=== PATIENT | female | born 1945 ===

== ENCOUNTER 2019-01-11 15:51 | Inpatient (IN) | payer MEDICARE, MEDICAID ==
--- NOTE | 2019-01-11 15:30 | NUR ---
RECEIVED ON UNIT WITH FAMILY AND FRIENDS AT HER SIDE. BROUGHT IN VIA HER OWN W/C FROM HOME. IN NO ACUTE DISTRESS. ORIENTED TO ROOM AND SURROUNDING VERBALIZE UNDERSTANDING.
[2019-01-11] MEDS ORDERED: GABA800T11 PO (17:01)
[2019-01-11] MEDS ORDERED: DULO60CA45 PO (17:01)
[2019-01-11] MEDS ORDERED: METO-358 PO (17:01)
[2019-01-11] MEDS ORDERED: FURO40TA5 PO (17:01)
[2019-01-11] MEDS ORDERED: VIT1CAPS27 PO (17:01)
[2019-01-11] MEDS ORDERED: LEVO75TA7 PO (17:01)
[2019-01-11] MEDS ORDERED: PSYL0.4C2 PO (17:01)
[2019-01-11] MEDS ORDERED: DIME240C2 PO (17:01)
[2019-01-11] MEDS ORDERED: CHOL10002 PO (17:01)
[2019-01-11] MEDS ORDERED: MORP20CA19 PO (17:01)
[2019-01-11] MEDS ORDERED: OXYC30TA2 PO (17:01)
[2019-01-11] MEDS ORDERED: POTA10TA15 PO (17:01)
[2019-01-11] MEDS ORDERED: ALEN70TA6 PO (17:01)
[2019-01-11] MEDS ORDERED: OMEP40CA37 PO (17:01)
[2019-01-11] MEDS ORDERED: MULT-1160 PO (17:01)
[2019-01-11] MEDS ORDERED: PRED5DRO16 OP (17:01)
[2019-01-11] MEDS ORDERED: ATOR80TA PO (17:01)
--- NOTE | 2019-01-11 19:00 | NUR ---
125/62, 98% on room air, 72 heart rate, 98.4 oral temperature, 19 respirations, no complaints of pain, no signs distress, MD joseph notified of patients arrival, patient noted transferring to commode
[2019-01-11 19:38] VITALS: BP 125/62
[2019-01-11 20:11] VITALS: BP 132/67
[2019-01-11] MEDS ORDERED: MORPHINE SULFATE IR 30 MG TABLET PO SCH (21:00)
[2019-01-11] MEDS: MORPHINE SULFATE SR 15 MG TABLET.SA PO SCH (21:04)
[2019-01-11] MEDS: OXYCODONE HCL 5 MG TABLET PO PRN (22:35)
[2019-01-11] MEDS: TEMAZEPAM 15 MG CAPSULE PO PRN (23:21)
--- NOTE | 2019-01-11 23:29 | NUR ---
Received pt in bed, AAO x 3, watching television. No acute distress noted. Verbally responsive and able to make needs known. Denies pain or discomfort at this time. All due medications given as ordered, tolerated. All safety measures and fall precautions maintained. Call light and all personal belongings within reach. Will continue to monitor.
[2019-01-12] MEDS: LEVOTHYROXINE SODIUM 75 MCG TABLET PO SCH (06:37)
[2019-01-12] MEDS: PANTOPRAZOLE SODIUM 40 MG TABLET.DR PO SCH (06:37)
[2019-01-12] MEDS: CHOLECALCIFEROL 1,000 UNIT TABLET PO SCH (08:20)
[2019-01-12] MEDS: MORPHINE SULFATE SR 15 MG TABLET.SA PO SCH ×2 (08:21→20:26)
[2019-01-12] MEDS: OXYCODONE HCL 5 MG TABLET PO PRN ×3 (08:21→22:51)
[2019-01-12] MEDS: FUROSEMIDE 40 MG TABLET PO SCH ×2 (08:21→17:24)
[2019-01-12] MEDS: POTASSIUM CHLORIDE 10 MEQ TAB.PRT.SR PO SCH (08:21)
[2019-01-12] MEDS: DULOXETINE 60 MG CAPSULE.DR PO SCH ×2 (08:22→17:23)
[2019-01-12] MEDS: METOPROLOL SUCCINATE XL 50 MG TAB.SR.24H PO SCH (08:22)
[2019-01-12] MEDS: GABAPENTIN 400 MG CAPSULE PO SCH ×3 (08:26→17:23)
[2019-01-12] MEDS: ALENDRONATE SODIUM 70 MG TABLET PO SCH (08:26)
--- NOTE | 2019-01-12 08:30 | NUR ---
Patient noted eating breakfast at this time, took all medications this morning, prn pain medication given for left sided generalized pain, no signs of distress noted, call light placed in reach, all needs met at this time
[2019-01-12 09:00] VITALS: BP 155/83
[2019-01-12] MEDS ORDERED: prednisoLONE ACET 1% OPHT DROP 5 ML BOTTLE OP SCH (09:00)
[2019-01-12] MEDS: NICOTINE 14 MG/24HR PATCH TD SCH (13:26)
--- NOTE | 2019-01-12 15:30 | NUR ---
Patient discharged at this time to home with formerly [facility] via ambulance service and [facility], discharge instructions given to family and patient, exit care provided, no skin issues, no complaints of pain, no signs of distress noted, VITALS: 112/41, 96% on room air, 18 respirations, 85 pulse, 97.8 oral temperature, belongings accounted for sent home with patient, all paperwork signed and placed in chart Addendum: 01/15/19 at 1539 by MAURISIO LEMUS RN RN ERROR, wrong patient
[2019-01-12 16:26] VITALS: BP 135/80
[2019-01-12] MEDS: prednisoLONE ACET 1% OPHT DROP 5 ML BOTTLE EACHEYE SCH (17:26)
--- NOTE | 2019-01-12 18:35 | NUR ---
Patient made statements to social media marketer about "wishing she would soon", denies suicide plan. MD Sherman notified with orders for Psyche evaluation. Order placed at this time
--- NOTE | 2019-01-12 19:35 | NUR ---
Patient alert and oriented x 3-4. Received in bed watching TV. C/O pain upon assessment, but does not watch medication at this time. Psych consult ordered, but not seen yet. Patient assisted to wheelchair so she can explore the unit. No SOB or distress notes. Will continue to monitor.
[2019-01-12] MEDS: ATORVASTATIN 40 MG TABLET PO SCH ×2 (20:25→20:29)
[2019-01-12 20:37] VITALS: BP 115/60
[2019-01-13] MEDS: TEMAZEPAM 15 MG CAPSULE PO PRN (01:25)
--- NOTE | 2019-01-13 06:15 | NUR ---
Morning BP noted to be 172/86. body recall instructor MD Woodruff contacted for orders. MD order Hydralazine 25mg once, with day shift MD to follow up to ajsust medications. Will continue to monitor.
[2019-01-13 06:28] VITALS: BP 172/86
[2019-01-13] MEDS ORDERED: hydrALAZINE HCL 25 MG TABLET PO ONE (06:30)
[2019-01-13] MEDS: LEVOTHYROXINE SODIUM 75 MCG TABLET PO SCH (06:33)
[2019-01-13] MEDS: PANTOPRAZOLE SODIUM 40 MG TABLET.DR PO SCH (06:33)
--- NOTE | 2019-01-13 06:50 | NUR ---
Patient slept poor this shift foreman. PRN Restoril given, without much effective. PRN pain medication given x1. All due medication given-tolerated well. Hydralazine PRN given-will monitor for BP decrease. given snacks as requested during the night. Patient would frequently wheel herself up to the nurses station and talk with nurses for distraction from inability to sleep. Side rails up bilaterally for safety. Call light and frequently used items within reach. Will endorse to oncoming shift accordingly.
[2019-01-13 08:08] VITALS: BP 166/75
[2019-01-13] MEDS: NICOTINE 14 MG/24HR PATCH TD SCH (08:34)
[2019-01-13] MEDS: GABAPENTIN 400 MG CAPSULE PO SCH ×3 (08:35→16:56)
[2019-01-13] MEDS: MORPHINE SULFATE SR 15 MG TABLET.SA PO SCH ×2 (08:35→20:52)
[2019-01-13] MEDS: DULOXETINE 60 MG CAPSULE.DR PO SCH ×2 (08:35→16:56)
[2019-01-13] MEDS: CHOLECALCIFEROL 1,000 UNIT TABLET PO SCH (08:35)
[2019-01-13] MEDS: prednisoLONE ACET 1% OPHT DROP 5 ML BOTTLE EACHEYE SCH ×2 (08:36→16:56)
[2019-01-13] MEDS: FUROSEMIDE 40 MG TABLET PO SCH ×2 (08:36→16:56)
[2019-01-13] MEDS: METOPROLOL SUCCINATE XL 50 MG TAB.SR.24H PO SCH (08:36)
[2019-01-13] MEDS: POTASSIUM CHLORIDE 10 MEQ TAB.PRT.SR PO SCH (08:36)
--- NOTE | 2019-01-13 14:07 | NUR ---
Received patient awake in bed in stable condition. For psychiatrist consult regarding verbalization, she wants to the sooner the better. MD Gaffney notified thru voice message. will continue monitor
[2019-01-13] MEDS: OXYCODONE HCL 5 MG TABLET PO PRN (15:34)
[2019-01-13 17:05] VITALS: BP 146/75
--- NOTE | 2019-01-13 18:28 | NUR ---
Patient awaiting for psych consult.no behavioral problem noted. will continue monitor
[2019-01-13 20:30] VITALS: BP 157/79
[2019-01-14] MEDS: OXYCODONE HCL 5 MG TABLET PO PRN (00:37)
[2019-01-14] MEDS: TEMAZEPAM 15 MG CAPSULE PO PRN (01:16)
[2019-01-14 05:30] VITALS: BP 159/80
--- NOTE | 2019-01-14 06:02 | NUR ---
aaox4 OOB in wheelchair most of the shift needs attended. complained of pain in the neck radiating to lower back. MS contin(scheduled) given. Tolerated well. Voiding well. Requested for sleeping pill given as needed plus the Oxy 15 mg given for pain. VSS. Will monitor patient. Patient due for psych consult, awaiting for the psych doctor to see her.
[2019-01-14] MEDS: PANTOPRAZOLE SODIUM 40 MG TABLET.DR PO SCH (06:29)
[2019-01-14] MEDS: LEVOTHYROXINE SODIUM 75 MCG TABLET PO SCH (06:31)
[2019-01-14 07:27] LABS: BASOPHILS % (AUTO) 0.5 % (0.0-2.0); EOSINOPHILS # (AUTO) 0.1 K/uL (0.0-0.7); HEMATOCRIT 31.7 % (31.2-41.9); HEMOGLOBIN 10.3 g/dL (10.9-14.3); LYMPHOCYTES # (AUTO) 0.4 K/uL (20.0-40.0); MEAN CORPUSCULAR HEMOGLOBIN 27.4 uug (24.7-32.8); MEAN CORPUSCULAR HGB CONC 32 g/dL (32.3-35.6); MEAN CORPUSCULAR VOLUME 84.4 fL (75.5-95.3); MONOCYTES # (AUTO) 0.5 K/uL (2.0-10.0); NEUTROPHILS # (AUTO) 3.8 K/uL (1.8-8.9); NEUTROPHILS % (AUTO) 77.5 % (38.5-71.5); PLATELET COUNT (AUTO) 382 K/uL (179-408); RED BLOOD CELL COUNT(AUTO) 3.75 MIL/uL (3.63-4.92); WHITE BLOOD COUNT (AUTO) 4.9 K/uL (3.8-11.8)
[2019-01-14 07:40] LABS: IRON, SERUM 25 ug/dL (50-175)
--- NOTE | 2019-01-14 08:00 | NUR ---
Patient awake, alert, in bed, not in any form of distress. She denies any pain or discomfort at this time. Assisted her to the toilet via wheelchair. Call light and frequently used items placed within reach.
[2019-01-14 08:38] LABS: ALANINE AMINOTRANSFERASE 19 U/L (14-59); ALKALINE PHOSPHATASE 99 U/L (50-136); ASPARTATE AMINOTRANSFERASE 27 U/L (15-37); BILIRUBIN,TOTAL 0.2 mg/dL (0.2-1.0); CARBON DIOXIDE 29 mmol/L (21-32); CHLORIDE 104 mmol/L (98-107); CHOLESTEROL 141 mg/dL (<200); CREATININE 0.9 mg/dL (0.6-1.3); GLUCOSE 89 mg/dL (74-106); HDL CHOLESTEROL 38 mg/dL (40-60); MAGNESIUM 1.9 mg/dL (1.8-2.4); PHOSPHOROUS 3.4 mg/dL (2.5-4.9); TOTAL PROTEIN, SERUM 6.8 g/dL (6.4-8.2); TRIGLYCERIDES 205 MG/DL (30-150); UREA NITROGEN, BLOOD 19 mg/dL (7-18)
[2019-01-14 09:33] LABS: THYROID STIMULATING HORMONE 2.257 mIU/mL (0.358-3.740)
[2019-01-14] MEDS: FUROSEMIDE 40 MG TABLET PO SCH ×2 (09:49→17:00)
[2019-01-14] MEDS: POTASSIUM CHLORIDE 10 MEQ TAB.PRT.SR PO SCH (09:49)
[2019-01-14] MEDS: GABAPENTIN 400 MG CAPSULE PO SCH ×3 (09:50→17:15)
[2019-01-14] MEDS: DULOXETINE 60 MG CAPSULE.DR PO SCH ×2 (09:50→17:14)
[2019-01-14] MEDS: CHOLECALCIFEROL 1,000 UNIT TABLET PO SCH (09:50)
[2019-01-14] MEDS: NICOTINE 14 MG/24HR PATCH TD SCH (09:51)
[2019-01-14] MEDS: MORPHINE SULFATE SR 15 MG TABLET.SA PO SCH ×2 (09:53→20:22)
[2019-01-14] MEDS: METOPROLOL SUCCINATE XL 50 MG TAB.SR.24H PO SCH (09:53)
[2019-01-14] MEDS: prednisoLONE ACET 1% OPHT DROP 5 ML BOTTLE EACHEYE SCH ×2 (09:54→17:14)
[2019-01-14] MEDS: FERROUS SULFATE 325 MG TABEC PO SCH (10:02)
[2019-01-14] MEDS: AMLODIPINE 5 MG TABLET PO SCH (10:02)
[2019-01-14 10:09] VITALS: BP 144/68
--- NOTE | 2019-01-14 15:57 | NUR ---
INDIVIDUALIZE PLAN OF CARE
[2019-01-14 16:44] VITALS: BP 99/54
[2019-01-14 19:40] VITALS: BP 148/72
--- NOTE | 2019-01-14 19:45 | NUR ---
Patient received sitting in the wheelchair, AAO x4. Able to make needs known. No acute distress or SOB noted. On room air. Complained of severe pain on her neck, rated 9/10. Physical assessment done. Safety measures observed. Fall precaution maintained. Bed in low position, side rails up x2 for safety, brake and alarm on. call light and personal belongings within reach. Continue to monitor.
[2019-01-14] MEDS: ATORVASTATIN 40 MG TABLET PO SCH (20:22)
[2019-01-15] MEDS: OXYCODONE HCL 5 MG TABLET PO PRN ×2 (00:12→10:57)
[2019-01-15] MEDS: TEMAZEPAM 15 MG CAPSULE PO PRN ×2 (01:40→21:58)
[2019-01-15] MEDS: PANTOPRAZOLE SODIUM 40 MG TABLET.DR PO SCH (06:42)
[2019-01-15] MEDS: LEVOTHYROXINE SODIUM 75 MCG TABLET PO SCH (06:42)
--- NOTE | 2019-01-15 07:15 | NUR ---
Patient developed a high BP:165/85, HR:81. No PRN medication for BP. Contacted on-call doctor for the order, Waiting for the response. Will monitor the patient and will endorse to the day shift nurse accordingly.
[2019-01-15 07:42] VITALS: BP 165/85
[2019-01-15] MEDS: DULOXETINE 60 MG CAPSULE.DR PO SCH ×2 (08:34→17:24)
[2019-01-15] MEDS: GABAPENTIN 400 MG CAPSULE PO SCH ×3 (08:34→17:24)
[2019-01-15] MEDS: METOPROLOL SUCCINATE XL 50 MG TAB.SR.24H PO SCH (08:36)
[2019-01-15] MEDS: AMLODIPINE 5 MG TABLET PO SCH (08:36)
[2019-01-15] MEDS: FERROUS SULFATE 325 MG TABEC PO SCH (08:36)
[2019-01-15] MEDS: MORPHINE SULFATE SR 15 MG TABLET.SA PO SCH ×2 (08:36→20:02)
[2019-01-15] MEDS: FUROSEMIDE 40 MG TABLET PO SCH ×2 (08:36→17:00)
[2019-01-15] MEDS: CHOLECALCIFEROL 1,000 UNIT TABLET PO SCH (08:36)
[2019-01-15] MEDS: POTASSIUM CHLORIDE 10 MEQ TAB.PRT.SR PO SCH (08:36)
[2019-01-15] MEDS: prednisoLONE ACET 1% OPHT DROP 5 ML BOTTLE EACHEYE SCH ×2 (08:37→17:25)
[2019-01-15] MEDS: NICOTINE 14 MG/24HR PATCH TD SCH (08:37)
[2019-01-15 09:30] VITALS: BP 129/78
--- NOTE | 2019-01-15 15:06 | NUR ---
Received patient awake in bed in stable condition. Continue therapy for ambulation, ADL, and unsteady gait. no behavioral issue noted. Continue pain management if needed. will continue monitor
--- NOTE | 2019-01-15 16:45 | NUR ---
As per therapy, Patient verbalize that she dont want to live in her brothers place and [facility]. PT said, will see the patient tomorrow, Patient verbalize"If Im still here". MD Rocha (Psych police communications operator) notified and agree to consult tomorrow. Patient consumed 90-100% of her meal. will continue monitor
[2019-01-15] MEDS: TECFIDERA 240 MG PO SCH (17:25)
[2019-01-15 18:40] VITALS: BP 117/60
[2019-01-15 19:49] VITALS: BP 147/79
--- NOTE | 2019-01-15 19:52 | NUR ---
Patient received in bed, AAO x4. Able to make needs known. No acute distress or SOB noted. On room air. Complained of severe pain on her neck, rated 8/10. Physical assessment done. Safety measures observed. Fall precaution maintained. Bed in low position, side rails up x2 for safety, brake and alarm on. call light and personal belongings within reach. Continue to monitor.
[2019-01-15] MEDS: ATORVASTATIN 40 MG TABLET PO SCH (20:02)
[2019-01-16] MEDS: OXYCODONE HCL 5 MG TABLET PO PRN ×3 (01:16→21:49)
[2019-01-16] MEDS: LEVOTHYROXINE SODIUM 75 MCG TABLET PO SCH (06:30)
[2019-01-16] MEDS: PANTOPRAZOLE SODIUM 40 MG TABLET.DR PO SCH (06:31)
[2019-01-16 06:38] VITALS: BP 146/62
--- NOTE | 2019-01-16 06:54 | NUR ---
End of the shift note Patient was stable throughout the shift and has a good sleep last night. No acute distress or SOB noted. On room air. Complained of pain in her neck rated 8/10 in numeric scale. Pain assessed and reassessed after pain medication. Checked Vital Signs. Offloaded heels by pillow. Assisted her to the bathroom by stand by supervision as needed. All due medications given and tolerated well. Safety measures observed. Fall precaution maintained. Bed in low position, side rails up x2 for safety, brake and alarm on. call light and personal belongings within reach. Continue to monitor.
--- NOTE | 2019-01-16 07:38 | NUR ---
Received patient awake, alert, sitting on the wheelchair, not in any form of distress. She denies any pain or discomfort at this time. Needs attended to. Call light and frequently used items within reach.
[2019-01-16 08:37] VITALS: BP 143/74
[2019-01-16] MEDS: POTASSIUM CHLORIDE 10 MEQ TAB.PRT.SR PO SCH (08:37)
[2019-01-16] MEDS: AMLODIPINE 5 MG TABLET PO SCH (08:37)
[2019-01-16] MEDS: CHOLECALCIFEROL 1,000 UNIT TABLET PO SCH (08:37)
[2019-01-16] MEDS: FUROSEMIDE 40 MG TABLET PO SCH ×2 (08:37→17:00)
[2019-01-16] MEDS: FERROUS SULFATE 325 MG TABEC PO SCH (08:38)
[2019-01-16] MEDS: GABAPENTIN 400 MG CAPSULE PO SCH ×3 (08:38→17:18)
[2019-01-16] MEDS: METOPROLOL SUCCINATE XL 50 MG TAB.SR.24H PO SCH (08:38)
[2019-01-16] MEDS: DULOXETINE 60 MG CAPSULE.DR PO SCH ×2 (08:39→17:18)
[2019-01-16] MEDS: prednisoLONE ACET 1% OPHT DROP 5 ML BOTTLE EACHEYE SCH ×2 (08:39→17:17)
[2019-01-16] MEDS: TECFIDERA 240 MG PO SCH ×2 (08:39→17:18)
[2019-01-16] MEDS: NICOTINE 14 MG/24HR PATCH TD SCH (08:40)
[2019-01-16] MEDS: MORPHINE SULFATE SR 15 MG TABLET.SA PO SCH (08:48)
--- NOTE | 2019-01-16 11:52 | NUR ---
INTERDISCIPLINARY TEAM CONFERENCE
--- NOTE | 2019-01-16 15:00 | NUR ---
Patient seen by Dr. Rocha, with new order.
--- NOTE | 2019-01-16 19:30 | NUR ---
Patient received in wheelchair watching TV. Alert and oriented x 3-4. No C/O pain upon assessment. Stool collected as ordered. No SOB or distress notes. Call light and frequently used items within reach. Will continue to monitor.
[2019-01-16 19:35] VITALS: BP 119/75
[2019-01-16] MEDS: ATORVASTATIN 40 MG TABLET PO SCH (20:59)
[2019-01-16 21:29] LABS: *OCCULT BLOOD STOOL POSITIVE (NEGATIVE)
--- NOTE | 2019-01-16 22:10 | NUR ---
Spoke with MD network contractor Jv regarding positive occult stool results. MD to put in orders for CBC for tomorrow morning. Will continue to monitor.
[2019-01-17] MEDS: TEMAZEPAM 15 MG CAPSULE PO PRN (01:17)
[2019-01-17 05:44] VITALS: BP 155/89
[2019-01-17 06:29] LABS: BASOPHILS % (AUTO) 0.5 % (0.0-2.0); EOSINOPHILS # (AUTO) 0.2 K/uL (0.0-0.7); EOSINOPHILS % (AUTO) 4.1 % (0.0-7.0); HEMATOCRIT 30.3 % (31.2-41.9); HEMOGLOBIN 9.9 g/dL (10.9-14.3); LYMPHOCYTES # (AUTO) 0.7 K/uL (20.0-40.0); LYMPHOCYTES % (AUTO) 15.6 % (20.5-51.5); MEAN CORPUSCULAR HEMOGLOBIN 27.6 uug (24.7-32.8); MEAN CORPUSCULAR HGB CONC 33 g/dL (32.3-35.6); MONOCYTES # (AUTO) 0.7 K/uL (2.0-10.0); MONOCYTES % (AUTO) 14.5 % (0.0-11.0); NEUTROPHILS # (AUTO) 2.9 K/uL (1.8-8.9); NEUTROPHILS % (AUTO) 65.3 % (38.5-71.5); PLATELET COUNT (AUTO) 321 K/uL (179-408); RED BLOOD CELL COUNT(AUTO) 3.61 MIL/uL (3.63-4.92); WHITE BLOOD COUNT (AUTO) 4.5 K/uL (3.8-11.8)
[2019-01-17] MEDS: PANTOPRAZOLE SODIUM 40 MG TABLET.DR PO SCH (06:34)
[2019-01-17] MEDS: LEVOTHYROXINE SODIUM 75 MCG TABLET PO SCH (06:34)
[2019-01-17 08:00] LABS: BASOPHILS % (MANUAL) 0 % (0-2); EOSINOPHILS % (MANUAL) 0 % (0-8); LYMPHOCYTES % (MANUAL) 17 % (20-40); MONOCYTES % (MANUAL) 5 % (2-10); NEUTROPHILS % (MANUAL) 68 % (42-75)
[2019-01-17] MEDS: OXYCODONE HCL 5 MG TABLET PO PRN ×2 (08:44→20:00)
[2019-01-17] MEDS: CHOLECALCIFEROL 1,000 UNIT TABLET PO SCH (08:44)
[2019-01-17] MEDS: METOPROLOL SUCCINATE XL 50 MG TAB.SR.24H PO SCH (08:45)
[2019-01-17] MEDS: AMLODIPINE 5 MG TABLET PO SCH (08:45)
[2019-01-17] MEDS: FERROUS SULFATE 325 MG TABEC PO SCH (08:45)
[2019-01-17] MEDS: POTASSIUM CHLORIDE 10 MEQ TAB.PRT.SR PO SCH (08:46)
[2019-01-17] MEDS: buPROPion SR 100 MG TABLET.SA PO SCH (08:46)
[2019-01-17] MEDS: NICOTINE 14 MG/24HR PATCH TD SCH (08:47)
[2019-01-17] MEDS: DULOXETINE 60 MG CAPSULE.DR PO SCH ×2 (08:47→18:42)
[2019-01-17] MEDS: GABAPENTIN 400 MG CAPSULE PO SCH ×3 (08:47→18:40)
[2019-01-17] MEDS: TECFIDERA 240 MG PO SCH ×2 (08:48→18:41)
[2019-01-17] MEDS: prednisoLONE ACET 1% OPHT DROP 5 ML BOTTLE EACHEYE SCH ×2 (08:48→18:43)
[2019-01-17] MEDS: FUROSEMIDE 40 MG TABLET PO SCH ×2 (08:50→13:58)
--- NOTE | 2019-01-17 15:45 | NUR ---
1700 lasix given early per pt request. she says she wants it earlier so she won't be up urinating too late.
--- NOTE | 2019-01-17 19:45 | NUR ---
Patient received in bed, AAO x4. Able to make needs known. No acute distress or SOB noted. On room air. Complained of severe pain on her neck, rated 9/10. Physical assessment done. Safety measures observed. Fall precaution maintained. Bed in low position, side rails up x2 for safety, brake and alarm on. call light and personal belongings within reach. Continue to monitor.
[2019-01-17] MEDS: ATORVASTATIN 40 MG TABLET PO SCH (20:00)
[2019-01-17 21:07] VITALS: BP 113/55
[2019-01-18] MEDS: TEMAZEPAM 15 MG CAPSULE PO PRN (00:28)
[2019-01-18] MEDS: MORPHINE SULFATE SR 15 MG TABLET.SA PO PRN (01:18)
--- NOTE | 2019-01-18 05:52 | NUR ---
End of the shift note Patient was stable throughout the shift and has a 6 hours sleep last night with the help of Restoril 15 mg cap. No acute distress or SOB noted. On room air. Complained of pain in her neck rated 9/10 in numeric scale. Pain assessed and reassessed after pain medication. Checked Vital Signs. Offloaded heels by pillow. Assisted her to the bathroom by stand by supervision as needed. All due medications given and tolerated well. Safety measures observed. Fall precaution maintained. Bed in low position, side rails up x2 for safety, brake and alarm on. call light and personal belongings within reach. Continue to monitor.
[2019-01-18] MEDS: PANTOPRAZOLE SODIUM 40 MG TABLET.DR PO SCH (06:43)
[2019-01-18] MEDS: LEVOTHYROXINE SODIUM 75 MCG TABLET PO SCH (06:43)
[2019-01-18] MEDS: OXYCODONE HCL 5 MG TABLET PO PRN ×3 (06:52→22:17)
[2019-01-18 07:07] VITALS: BP 154/77
[2019-01-18] MEDS: CHOLECALCIFEROL 1,000 UNIT TABLET PO SCH (08:41)
[2019-01-18] MEDS: AMLODIPINE 5 MG TABLET PO SCH (08:41)
[2019-01-18] MEDS: FUROSEMIDE 40 MG TABLET PO SCH ×2 (08:42→14:10)
[2019-01-18] MEDS: METOPROLOL SUCCINATE XL 50 MG TAB.SR.24H PO SCH (08:42)
[2019-01-18] MEDS: FERROUS SULFATE 325 MG TABEC PO SCH (08:42)
[2019-01-18] MEDS: NICOTINE 21 MG/24HR PATCH TD SCH (08:42)
[2019-01-18] MEDS: POTASSIUM CHLORIDE 10 MEQ TAB.PRT.SR PO SCH (08:42)
[2019-01-18] MEDS: DULOXETINE 60 MG CAPSULE.DR PO SCH ×2 (08:43→17:25)
[2019-01-18] MEDS: GABAPENTIN 400 MG CAPSULE PO SCH ×3 (08:43→17:25)
[2019-01-18] MEDS: TECFIDERA 240 MG PO SCH ×2 (08:43→17:26)
[2019-01-18] MEDS: prednisoLONE ACET 1% OPHT DROP 5 ML BOTTLE EACHEYE SCH ×2 (08:43→17:25)
[2019-01-18] MEDS: buPROPion SR 100 MG TABLET.SA PO SCH (08:44)
[2019-01-18] MEDS ORDERED: NICOTINE 14 MG/24HR PATCH TD SCH (09:00)
--- NOTE | 2019-01-18 18:13 | NUR ---
WELLBUTRIN D/C BY D/T HER C/O DIZZINESS AND SHE THINKS IT IS BECAUSE OF THE WELLBUTRIN. IN BED RESTING NO C/O DISTRESS
--- NOTE | 2019-01-18 19:34 | NUR ---
Patient received in bed, AAO x4. Able to make needs known. No acute distress or SOB noted. On room air. No Complain of pain at this time. Physical assessment done. Safety measures observed. Fall precaution maintained. Bed in low position, side rails up x2 for safety, brake and alarm on. call light and personal belongings within reach. Continue to monitor.
[2019-01-18 19:40] VITALS: BP 98/60
[2019-01-18] MEDS: ATORVASTATIN 40 MG TABLET PO SCH (20:20)
[2019-01-19] MEDS: TEMAZEPAM 15 MG CAPSULE PO PRN (01:07)
--- NOTE | 2019-01-19 05:14 | NUR ---
End of the shift note Patient was stable throughout the shift and has 6.5 hours sleep last night with the help of Restoril 15 mg cap. No acute distress or SOB noted. On room air. Complained of pain in her neck rated 9/10 in numeric scale. Pain assessed and reassessed after pain medication. Checked Vital Signs. Offloaded heels by pillow. Assisted her to the bathroom by stand by supervision as needed. All due medications given and tolerated well. Safety measures observed. Fall precaution maintained. Bed in low position, side rails up x2 for safety, brake and alarm on. call light and personal belongings within reach. Continue to monitor and will endorse to oncoming nurse accordingly.
[2019-01-19 05:50] VITALS: BP 156/80
[2019-01-19] MEDS: LEVOTHYROXINE SODIUM 75 MCG TABLET PO SCH (06:33)
[2019-01-19] MEDS: PANTOPRAZOLE SODIUM 40 MG TABLET.DR PO SCH (06:33)
[2019-01-19 08:20] VITALS: BP 150/71
[2019-01-19] MEDS: FUROSEMIDE 40 MG TABLET PO SCH ×2 (08:20→13:13)
[2019-01-19] MEDS: FERROUS SULFATE 325 MG TABEC PO SCH (08:20)
[2019-01-19] MEDS: POTASSIUM CHLORIDE 10 MEQ TAB.PRT.SR PO SCH (08:20)
[2019-01-19] MEDS: AMLODIPINE 5 MG TABLET PO SCH (08:20)
[2019-01-19] MEDS: METOPROLOL SUCCINATE XL 50 MG TAB.SR.24H PO SCH (08:21)
[2019-01-19] MEDS: TECFIDERA 240 MG PO SCH ×2 (08:21→16:41)
[2019-01-19] MEDS: CHOLECALCIFEROL 1,000 UNIT TABLET PO SCH (08:21)
[2019-01-19] MEDS: NICOTINE 21 MG/24HR PATCH TD SCH (08:22)
[2019-01-19] MEDS: ALENDRONATE SODIUM 70 MG TABLET PO SCH (08:22)
[2019-01-19] MEDS: prednisoLONE ACET 1% OPHT DROP 5 ML BOTTLE EACHEYE SCH ×2 (08:22→16:41)
[2019-01-19] MEDS: GABAPENTIN 400 MG CAPSULE PO SCH ×3 (08:23→16:40)
[2019-01-19] MEDS: DULOXETINE 60 MG CAPSULE.DR PO SCH ×2 (08:24→16:40)
--- NOTE | 2019-01-19 08:30 | NUR ---
Patient awake, alert, not in any form of distress. Due medications administered and tolerated well. She denies any pain or discomfort at this time. Call light placed within reach.
[2019-01-19] MEDS: MORPHINE SULFATE SR 15 MG TABLET.SA PO PRN (10:11)
[2019-01-19] MEDS: OXYCODONE HCL 5 MG TABLET PO PRN ×2 (12:07→21:38)
--- NOTE | 2019-01-19 12:30 | NUR ---
Patient seen by Dr. Sanchez with no new order at this time.
[2019-01-19 16:13] VITALS: BP 149/69
--- NOTE | 2019-01-19 18:20 | NUR ---
Patient seen and examined by Dr. Sherman and patient complained of palpitations. BP 106/61, P 74, RR 18, O2 sat 96%. Dr. Sherman ordered EKG.
[2019-01-19 19:50] VITALS: BP 103/62
[2019-01-19] MEDS: ATORVASTATIN 40 MG TABLET PO SCH (20:39)
--- NOTE | 2019-01-19 20:50 | NUR ---
Received pt in bed, AAO x 3, resting comfortably. No acute distress noted. Verbally responsive and able to make needs known. Denies pain or discomfort at this time. All safety measures and fall precautions maintained. Call light and all personal belongings within reach. Will continue to monitor.
[2019-01-20] MEDS: TEMAZEPAM 15 MG CAPSULE PO PRN (01:07)
[2019-01-20 05:22] VITALS: BP 132/72
[2019-01-20] MEDS: OXYCODONE HCL 5 MG TABLET PO PRN ×3 (06:23→20:13)
[2019-01-20] MEDS: PANTOPRAZOLE SODIUM 40 MG TABLET.DR PO SCH (06:24)
[2019-01-20] MEDS: LEVOTHYROXINE SODIUM 75 MCG TABLET PO SCH (06:30)
--- NOTE | 2019-01-20 08:20 | NUR ---
Patient noted sitting in wheelchair in room, no complaints of pain at this time, no signs of distress noted, call light in reach, bedside table in reach with breakfast, all needs met
[2019-01-20] MEDS: POTASSIUM CHLORIDE 10 MEQ TAB.PRT.SR PO SCH (08:35)
[2019-01-20] MEDS: CHOLECALCIFEROL 1,000 UNIT TABLET PO SCH (08:35)
[2019-01-20] MEDS: FUROSEMIDE 40 MG TABLET PO SCH ×2 (08:35→14:00)
[2019-01-20] MEDS: FERROUS SULFATE 325 MG TABEC PO SCH (08:35)
[2019-01-20] MEDS: NICOTINE 21 MG/24HR PATCH TD SCH (08:36)
[2019-01-20] MEDS: METOPROLOL SUCCINATE XL 50 MG TAB.SR.24H PO SCH (08:36)
[2019-01-20] MEDS: AMLODIPINE 5 MG TABLET PO SCH (08:36)
[2019-01-20] MEDS: TECFIDERA 240 MG PO SCH ×2 (08:37→16:35)
[2019-01-20] MEDS: GABAPENTIN 400 MG CAPSULE PO SCH ×3 (08:37→16:34)
[2019-01-20] MEDS: prednisoLONE ACET 1% OPHT DROP 5 ML BOTTLE EACHEYE SCH ×2 (08:38→16:34)
[2019-01-20] MEDS: DULOXETINE 60 MG CAPSULE.DR PO SCH ×2 (08:38→16:34)
[2019-01-20 09:00] VITALS: BP 142/73
[2019-01-20] MEDS: FAMOTIDINE 20 MG TABLET PO SCH (10:27)
[2019-01-20 18:12] VITALS: BP 139/75
[2019-01-20 19:32] VITALS: BP 131/74
--- NOTE | 2019-01-20 19:45 | NUR ---
Patient received bed dozing. patient states that she is very tired from previous night when she did not sleep. Alert and oriented x 3-4. C/O pain upon assessment. Will medicate. SOB or distress notes. Side rails up bilaterally for safety. Call light and frequently used items within reach. Will continue to monitor.
[2019-01-20] MEDS: ATORVASTATIN 40 MG TABLET PO SCH (20:11)
[2019-01-21 06:04] VITALS: BP 158/89
[2019-01-21] MEDS: LEVOTHYROXINE SODIUM 75 MCG TABLET PO SCH (06:36)
[2019-01-21] MEDS: PANTOPRAZOLE SODIUM 40 MG TABLET.DR PO SCH (06:36)
[2019-01-21] MEDS: FAMOTIDINE 20 MG TABLET PO SCH (08:08)
[2019-01-21] MEDS: CHOLECALCIFEROL 1,000 UNIT TABLET PO SCH (08:08)
[2019-01-21] MEDS: TECFIDERA 240 MG PO SCH ×2 (08:09→17:05)
[2019-01-21] MEDS: POTASSIUM CHLORIDE 10 MEQ TAB.PRT.SR PO SCH (08:09)
[2019-01-21] MEDS: GABAPENTIN 400 MG CAPSULE PO SCH ×3 (08:09→17:04)
[2019-01-21] MEDS: FERROUS SULFATE 325 MG TABEC PO SCH (08:09)
[2019-01-21] MEDS: FUROSEMIDE 40 MG TABLET PO SCH ×2 (08:09→13:15)
[2019-01-21] MEDS: NICOTINE 21 MG/24HR PATCH TD SCH (08:10)
[2019-01-21] MEDS: prednisoLONE ACET 1% OPHT DROP 5 ML BOTTLE EACHEYE SCH ×2 (08:10→17:04)
[2019-01-21] MEDS: DULOXETINE 60 MG CAPSULE.DR PO SCH ×2 (08:10→17:04)
--- NOTE | 2019-01-21 08:10 | NUR ---
Patient awake, alert, sitting on the wheelchair, not in any form of distress. Morning due medications administered and tolerated well. No complain of any pain or discomfort at this time. Assisted with her needs. Call light and frequently used items placed within reach.
[2019-01-21] MEDS: METOPROLOL SUCCINATE XL 50 MG TAB.SR.24H PO SCH (08:26)
[2019-01-21] MEDS: AMLODIPINE 5 MG TABLET PO SCH (08:27)
[2019-01-21] MEDS: OXYCODONE HCL 5 MG TABLET PO PRN ×2 (08:51→13:20)
--- NOTE | 2019-01-21 09:00 | NUR ---
Patient made aware of discharge plan for the day and is agreeable.
[2019-01-21 09:20] VITALS: BP 158/81
[2019-01-21 16:00] VITALS: BP 136/67
--- NOTE | 2019-01-21 18:15 | NUR ---
Patient seen by Dr. Sherman with no new order, provided discharge prescription for pain medication.
--- NOTE | 2019-01-21 18:45 | NUR ---
Discharge instructions provided to the patient with verbalized understanding. Discharge papers signed by and given to the patient. All belongings well accounted for. Prescription provided to the patient. Patient remains alert, oriented x 4, not in any form of distress. No complain of any pain or discomfort at this time. Called [facility] transportation for worm picker which is available at 7:20PM.
--- NOTE | 2019-01-21 19:45 | NUR ---
Ambulanz in unit to pickling tank operator pt at this time. Vitals stable, no acute distress noted, denies pain or discomfort at this time. All paperwork given. Education provided. Pt verbalized understanding.
== END 2019-01-21 19:45 | disposition home health service (06) | DRG 58 ==
PROVIDERS: ADMIT Physical Medicine & Rehabilitation Pain Medicine; ATTEND Physical Medicine & Rehabilitation Pain Medicine
DX: G35 Multiple sclerosis (principal); G93.41 Metabolic encephalopathy; H46.12 Retrobulbar neuritis, left eye; I42.9 Cardiomyopathy, unspecified; F33.2 Major depressive disorder, recurrent severe without psychotic features; I50.32 Chronic diastolic (congestive) heart failure; E03.9 Hypothyroidism, unspecified; E78.5 Hyperlipidemia, unspecified; H54.62 Unqualified visual loss, left eye, normal vision right eye; G62.9 Polyneuropathy, unspecified; I11.0 Hypertensive heart disease with heart failure; I50.9 Heart failure, unspecified; R26.9 Unspecified abnormalities of gait and mobility; R53.81 Other malaise; M19.90 Unspecified osteoarthritis, unspecified site; M81.0 Age-related osteoporosis without current pathological fracture; Z96.642 Presence of left artificial hip joint; Z99.3 Dependence on wheelchair; D63.8 Anemia in other chronic diseases classified elsewhere; I70.0 Atherosclerosis of aorta; J44.9 Chronic obstructive pulmonary disease, unspecified; Z87.891 Personal history of nicotine dependence; Z91.81 History of falling; Z66 Do not resuscitate; G89.29 Other chronic pain
CPT/HCPCS: 36415; 70030-TC; 71045; 83550; 83735; 84100; 84443; 85025; 92526; 92610; 93005; 97110; 97112; 97116; 97530; 97535; J2650; J8499